=== PATIENT | female | born 1980 | race Caucasian/White ===

== ENCOUNTER 2020-11-08 13:12 | Emergency (ER) | payer OTHER ==
[~2020-11-08] VITALS: Ht 160 cm; Wt 90.7 kg
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
[2020-11-08] MEDS ORDERED: HYDROCODONE/APAP 5/325MG TABLET ONE (13:56)
[2020-11-08] MEDS ORDERED: HYDROCODONE/APAP 5/325MG TABLET PO ONE (14:00)
[2020-11-08] MEDS ORDERED: DICL50TA7 PO (15:47)
--- NOTE | 2020-11-08 16:26 | NUR ---
patient condition stable ambulatory with steady gait d/c home after care reviewed understood.
[2020-11-08 16:27] VITALS: BP 140/80
== END 2020-11-08 16:30 | disposition home or self-care (01) ==
LOC: ER 13:15
DX: R07.89 Other chest pain (principal); M25.531 Pain in right wrist; M79.641 Pain in right hand; J45.909 Unspecified asthma, uncomplicated; G89.29 Other chronic pain; Z90.49 Acquired absence of other specified parts of digestive tract; Z90.89 Acquired absence of other organs; Z98.890 Other specified postprocedural states; Z88.0 Allergy status to penicillin; V49.49XA Driver injured in collision with other motor vehicles in traffic accident, initial encounter; Y93.89 Activity, other specified; Y92.413 State road as the place of occurrence of the external cause; Y99.8 Other external cause status
CPT/HCPCS: 71045-TC; 73110; 73130-TC